=== PATIENT | female | born 1990 | race American Indian/Alaskan Native ===

== ENCOUNTER 2017-08-01 23:15 | Outpatient (CLI) | payer MEDICAID ==
[2017-08-01 23:44] VITALS: BP 116/72
[2017-08-01] MEDS ORDERED: LACTATED RINGERS 500 ML IV ONE (23:50)
[2017-08-02] MEDS ORDERED: BRETHINE SUB-Q ONE ×3 (00:44→02:04)
[2017-08-02 01:22] LABS: Amphetamine Screen,Urine PRESUMPTIVE NEGATIVE; Benzodiazepines Screen,Urine PRESUMPTIVE NEGATIVE; Cannabinoid Screen,Urine PRESUMPTIVE NEGATIVE; Cocaine Screen,Urine PRESUMPTIVE NEGATIVE; Methadone Screen,Urine PRESUMPTIVE NEGATIVE; Opiate Screen,Urine PRESUMPTIVE NEGATIVE
[2017-08-02] MEDS ORDERED: VISTARIL PO ONE (02:08)
== END 2017-08-02 02:51 | disposition home or self-care (01) ==
LOC: TRG 23:15
PROVIDERS: ATTEND Obstetrics & Gynecology
DX: O26.893 Other specified pregnancy related conditions, third trimester (principal); R25.2 Cramp and spasm; Z3A.33 33 weeks gestation of pregnancy
CPT/HCPCS: 59025; 80307; 96360; 96372; J3105; J7120; Q0177

== ENCOUNTER 2017-09-09 23:11 | Outpatient (CLI) | payer MEDICAID ==
[2017-09-09 23:39] VITALS: BP 103/66
== END 2017-09-10 01:05 | disposition home or self-care (01) ==
LOC: TRG 23:11
PROVIDERS: ATTEND Obstetrics & Gynecology
DX: O47.1 False labor at or after 37 completed weeks of gestation (principal); Z3A.38 38 weeks gestation of pregnancy
CPT/HCPCS: 59025